=== PATIENT | female | born 1990 | race Caucasian/White ===

== ENCOUNTER 2020-03-10 05:30 | Inpatient (IN) ==
[2020-03-10] MEDS ORDERED: Famotidine 20 MG/2 ML VIAL IVP ONE (06:12)
[2020-03-10] MEDS ORDERED: Naloxone 0.4 MG/ML INJ IVP PRN (06:12)
[2020-03-10] MEDS ORDERED: Ringers Solution, Lactated 1,000 ML IVC ONE (06:12)
[2020-03-10] MEDS ORDERED: Metoclopramide 10 MG/2 ML VIAL IVP ONE (06:12)
[2020-03-10 06:47] LABS: Hematocrit 38.3 % (35.3-44.9); Hemoglobin 12.4 g/dL (11.5-15.4); Immature Granulocytes % 0.5 % (0-4); Lymphocytes # 2.2 K/mcL (0.6-4.6); Lymphocytes % 21.5 %; Mean Corpuscular HGB Conc 32.4 g/dL (31.6-35.5); Mean Corpuscular Hemoglobin 28.1 pg (28.0-33.3); Mean Corpuscular Volume 86.7 fL (83.0-100.0); Neutrophils # 6.6 K/mcL (1.6-8.9); Platelet Count 193 K/mcL (140-400); Red Blood Count 4.42 M/mcL (3.82-4.97); Red Cell Distribution Width 13.1 % (11.5-14.5); Segmented Neutrophils % 65.9 %
[2020-03-10 06:48] LABS: Basophils % 0.3 %; Eosinophils # 0.1 K/mcL (0.0-0.6); Eosinophils % 1.3 %; Monocytes # 1.1 K/mcL (0.0-1.3); Monocytes % 10.5 %
[2020-03-10] MEDS ORDERED: CeFAZolin 2,000 MG/50 ML BAG IVPB ONE (07:13)
[2020-03-10] MEDS ORDERED: *HR* HYDROmorphone PF 0.5 MG/0.5 ML SYRINGE IVP PRN (07:27)
[2020-03-10] MEDS ORDERED: *HR* FentaNYL (PF) 100 MCG/2 ML VIAL ONE (07:30)
[2020-03-10] MEDS ORDERED: *HR* Morphine Sulfate/PF 10 MG/10 ML AMPUL ONE (07:30)
[2020-03-10] MEDS ORDERED: *HR* Phenylephrine 10 MG/ML VIAL ONE (07:35)
[2020-03-10] MEDS ORDERED: Ringers Solution, Lactated 1,000 ML ONE ×2 (07:36→08:13)
[2020-03-10] MEDS ORDERED: Ondansetron 4 MG/2 ML VIAL ONE (08:11)
[2020-03-10] MEDS ORDERED: Acetaminophen IV 1,000 MG/100 ML BAG ONE (08:12)
[2020-03-10] MEDS ORDERED: *HR* Oxytocin 10 UNIT/ML VIAL IM ONE (08:13)
[2020-03-10] MEDS ORDERED: Ketorolac 30 MG/ML VIAL ONE (08:20)
[2020-03-10 09:03] LABS: Amphetamine Screen,Urine Negative ng/mL (Cutoff=1000); Barbiturate Screen,Urine Negative ng/mL (Cutoff=200); Benzodiazepines Screen,Urine Negative ng/mL (Cutoff=200); Cannabinoid Screen,Urine Negative ng/mL (Cutoff = 50); Cocaine Screen,Urine Negative ng/mL (Cutoff= 300); Opiate Screen,Urine Negative ng/mL (Cutoff=300); Phencyclidine Screen,Urine Negative ng/mL (Cutoff=25)
[2020-03-10] MEDS ORDERED: Ondansetron 4 MG/2 ML VIAL IVP PRN (11:30)
[2020-03-10] MEDS ORDERED: Metoclopramide 10 MG/2 ML VIAL IVP PRN (11:30)
[2020-03-10] MEDS ORDERED: *HR* Enoxaparin 150 MG/ML SYRINGE SQ SCH (11:30)
[2020-03-10] MEDS ORDERED: Simethicone 80 MG TAB.CHEW PO PRN (11:30)
[2020-03-10] MEDS ORDERED: *HR* OxyCODONE/APAP 5/325 TABLET PO PRN (11:30)
[2020-03-10] MEDS ORDERED: Sennosides 8.6 MG TABLET PO PRN (11:30)
[2020-03-10] MEDS: Prenatal Vit/FA 1 EACH TABLET PO SCH (11:58)
[2020-03-10] MEDS: Ibuprofen 600 MG TABLET PO PRN ×2 (12:17→20:48)
[2020-03-10] MEDS: metroNIDAZOLE 500 MG TABLET PO SCH ×3 (12:19→20:48)
[2020-03-10] MEDS: Oxytocin 20 units/ LR 1000 mL 20 UNIT/1,000 ML BAG IVC SCH ×2 (12:53→22:12)
[2020-03-10] MEDS: *HR* Enoxaparin 150 MG/ML SYRINGE SQ SCH (15:14)
[2020-03-10] MEDS: ceFAZolin 3,000 MG in 0.9 % Sodium Chloride 100 ML IVPB SCH (16:51)
[2020-03-11] MEDS: ceFAZolin 3,000 MG in 0.9 % Sodium Chloride 100 ML IVPB SCH ×3 (00:21→17:47)
[2020-03-11] MEDS: Ibuprofen 600 MG TABLET PO PRN ×4 (02:17→20:44)
[2020-03-11] MEDS: *HR* Enoxaparin 150 MG/ML SYRINGE SQ SCH ×2 (05:54→17:46)
[2020-03-11] MEDS: Prenatal Vit/FA 1 EACH TABLET PO SCH (08:15)
[2020-03-11] MEDS: metroNIDAZOLE 500 MG TABLET PO SCH ×3 (08:15→20:45)
[2020-03-11 08:19] LABS: Basophils % 0.4 %; Eosinophils # 0.1 K/mcL (0.0-0.6); Eosinophils % 1.4 %; Hematocrit 30.6 % (35.3-44.9); Hemoglobin 10.2 g/dL (11.5-15.4); Immature Granulocytes % 0.4 % (0-4); Lymphocytes # 1.8 K/mcL (0.6-4.6); Lymphocytes % 21.7 %; Mean Corpuscular HGB Conc 33.3 g/dL (31.6-35.5); Mean Corpuscular Hemoglobin 28.3 pg (28.0-33.3); Mean Platelet Volume 11.7 fL (9.4-12.4); Monocytes # 0.9 K/mcL (0.0-1.3); Monocytes % 10.9 %; Neutrophils # 5.5 K/mcL (1.6-8.9); Platelet Count 150 K/mcL (140-400); Red Cell Distribution Width 12.9 % (11.5-14.5); Segmented Neutrophils % 65.2 %; White Blood Count 8.5 K/mcL (4.3-11.1)
[2020-03-12] MEDS: Ibuprofen 600 MG TABLET PO PRN (05:33)
[2020-03-12] MEDS: *HR* Enoxaparin 150 MG/ML SYRINGE SQ SCH (05:33)
[2020-03-12 07:46] VITALS: BP 102/52
[2020-03-12] MEDS: Prenatal Vit/FA 1 EACH TABLET PO SCH (07:46)
== END 2020-03-12 11:40 | disposition home or self-care (01) | DRG 787 ==
LOC: 1NENULAB 06:05 → 1NENUOBS 11:30
PROVIDERS: ADMIT Obstetrics & Gynecology; ATTEND Obstetrics & Gynecology